=== PATIENT | female | born 1980 | race Caucasian/White ===

== ENCOUNTER 2019-08-16 13:06 | Emergency (ER) | payer OTHER ==
--- NOTE | 2019-08-16 13:21 | PDOC ---
Rapid Medical Evaluation Time Seen by Provider: 08/16/19 13:15 Medical Evaluation: 08/16/19 13:15 Pt presents for evaluation of vaginal bleeding, A1. Reports she has been bleeding since Saturday. She had a positive home test two days ago. LMP July 24 2019. Reports lower abdominal cramping. Exam: defer to provider. NAD Orders: Labs, TVUS Pt to proceed to the ER for further evaluation Discharge Disposition - Diagnosis Vaginal bleeding - Referrals - Patient Instructions - Post Discharge Activity
[2019-08-16 13:22] VITALS: BMI 22.6
--- NOTE | 2019-08-16 13:41 | PDOC ---
History of Present Illness - General Chief Complaint: ,Possible Stated Complaint: VAGINAL BLEEDING Time Seen by Provider: 08/16/19 13:15 - History of Present Illness Initial Comments: 08/16/19 13:40 HPI: 39 y/o F A1, presents to the ED with vaginal bleeding x 3 days. pt reports + home test as well as positive upreg at urgent care today. She endorses intermittent abdominal pain across her lower abdomen. No relieving or exacerbating factors, and pain is not positional in nature. LMP 07/24/2019. Pt reports changing pad x1 daily since bleeding began, and does not soak them through. Patient denies KIRBY, vision change, palpitations, cough, wheezing, orthopnea, PND, leg swelling/pain, nausea, vomiting, fevers, chills, chest pain, SOB, urinary complaints, hematuria, BPR, abdominal pain, diarrhea, constipation, lightheadedness, weakness, sensory changes. PMHx: as noted above ROS: as noted SHx: Denies Etoh, IVDA, tobacco use Allergies: NKDA ROS: GENERAL/CONSTITUTIONAL: No fever or chills. No weakness. HEAD, EYES, EARS, NOSE AND THROAT: No change in vision. No ear pain or discharge. No sore throat. CARDIOVASCULAR: No chest pain or shortness of breath RESPIRATORY: No cough, wheezing, or hemoptysis. GASTROINTESTINAL: No nausea, vomiting, diarrhea or constipation. GENITOURINARY: No dysuria, frequency, or change in urination. MUSCULOSKELETAL: No joint or muscle swelling or pain. No neck or back pain. SKIN: No rash NEUROLOGIC: No headache, vertigo, loss of consciousness, or change in strength /sensation. ENDOCRINE: No increased thirst. No abnormal weight change HEMATOLOGIC/LYMPHATIC: No anemia, easy bleeding, or history of blood clots. ALLERGIC/IMMUNOLOGIC: No hives or skin allergy. PE: GENERAL: Awake, alert, and fully oriented, in no acute distress HEAD: No signs of trauma, normocephalic, atraumatic EYES: PERRLA, EOMI, sclera anicteric, conjunctiva clear ENT: Auricles normal inspection, hearing grossly normal, nares patent, oropharynx clear without exudates. Moist mucosa NECK: Normal ROM, supple, no lymphadenopathy, JVD, or masses LUNGS: No distress, speaks full sentences, clear to auscultation bilaterally HEART: Regular rate and rhythm, normal S1 and S2, no murmurs, rubs or gallops, peripheral pulses normal and equal bilaterally. ABDOMEN: Soft, +RLQ tenderness, normoactive bowel sounds. No guarding, no rebound. No masses PELVIC: Nml appearing external genitalia, with absent lesions. Vaginal vault with blood(no pooling observed). Cervical os closed. Neg CMT on BM. Neg adenexal ttp, or mass palpated. EXTREMITIES : Normal inspection, Normal range of motion, no edema. No clubbing or cyanosis NEUROLOGICAL: Cranial nerves II through XII grossly intact. Normal speech, normal gait, no focal sensorimotor deficits SKIN: Warm, Dry, normal turgor, no rashes or lesions noted 08/16/19 14:36 08/16/19 17:59 Past History - Medical History Allergies/Adverse Reactions: Allergies Allergy/AdvReac Type Severity Reaction Status Date / Time No Known Allergies Allergy Verified 08/16/19 13:18 Home Medications: Ambulatory Orders NK [No Known Home Medication] 08/16/19 COPD: No - Psycho-Social/Smoking History Smoking History: Never smoked Have you smoked in the past 12 months: No - Substance Abuse Hx (Audit-C & DAST Scrn) How often the patient has a drink containing alcohol: Never Score: In Men: 4 or > Positive; In Women: 3 or > Positive: 0 Screen Result (Pos requires Nsg. Audit-10AR): Negative In the last yr the pt used illegal drug/Rx for NonMed reason: No Score: Yes response is considered Positive: 0 Screen Result (Positive result requires Nsg. DAST-10): Negative *Physical Exam - Vital Signs Last Vital Signs Temp Pulse Resp BP Pulse Ox 97.6 F 82 18 111/67 99 08/16/19 13:18 08/16/19 13:18 08/16/19 13:18 08/16/19 13:18 08/16/19 13:18 ED Treatment Course - LABORATORY CBC & Chemistry Diagram: 08/16/19 13:35 08/16/19 13:35 Medical Decision Making - Medical Decision Making 08/16/19 14:41 39 y/o F A1, presents to the ED with vaginal bleeding x 3 days. pt reports + home test ans well as positive upreg at urgent care today. ddx; ,ectopic, less likely pid workup: cbc, cmp, beta quant, tvus. 08/16/19 15:34 beta hc.4 TVUS no intrauterine gestation/gestatational sac ovaries unremarkable no gross adnxeal pathology no free intraperitoneal fluid. Pt has empty uterus + no adnexal mass + no free fluid beta -hcg <1500 and lower for what it should be at this gestational age pt will follow up with OB/ED for repeat beta-hcg in 48 hours pt O+ hence no Rhogham given 08/16/19 18:03 08/16/19 18:06 Discharge - Discharge Information Problems reviewed: Yes Clinical Impression/Diagnosis: Vaginal bleeding Condition: Stable Disposition: HOME - Admission No - Follow up/Referral - Patient Discharge Instructions Patient Printed Discharge Instructions: DI for Miscarriage Additional Instructions: You should return to the hospital if you continue to have persistent and heavy vaginal bleeding, persistent pelvic pain not relieved by your prescribed medications, dizziness, shortness of breath, new and persistent fevers, other foul smelling discolored vaginal discharge, or for any other concerns. We have given you follow up with one of our OB/GYNS COME TO THE ED ON 08/17 to fast track for a repeat beta - hcg, if your OB is not able to see you by then. - Post Discharge Activity
[2019-08-16 14:00] LABS: BASO % 0.7 % (0-2.0); EOS % 1.4 % (0-4.5); HEMATOCRIT 40.2 % (32.4-45.2); HEMOGLOBIN 13.2 GM/dL (10.7-15.3); LYMPH % 23.2 % (8-40); MCHC 32.9 g/dl (32.0-36.0); MEAN CELL VOLUME 94.4 fl (80-96); MEAN PLT VOLUME 10.5 fl (7.5-11.1); MONO % 6.9 % (3.8-10.2); NEUT % 67.8 % (42.8-82.8); PLATELET COUNT 177 K/MM3 (134-434); RBC 4.26 M/mm3 (3.60-5.2); RDW 12.7 % (11.6-15.6); WHITE BLOOD COUNT 7.2 K/mm3 (4.0-10.0)
[2019-08-16 14:33] LABS: PH,URINE 5.5 (5.0-8.0); URINE APPEARANCE Clear; URINE BILIRUBIN Negative (NEGATIVE); URINE COLOR Yellow; URINE GLUCOSE (UA) Negative (NEGATIVE); URINE KETONE Negative (NEGATIVE); URINE LEUK ESTERASE Negative (NEGATIVE); URINE NITRITE Negative (NEGATIVE); URINE PROTEIN Negative (NEGATIVE); URINE UROBILINOGEN 0.2 mg/dL (0.2-1.0)
[2019-08-16 14:39] LABS: ALBUMIN 4.4 g/dl (3.4-5.0); BILIRUBIN,TOTAL 0.5 mg/dL (0.2-1); BLOOD UREA NITROGEN 16.1 mg/dL (7-18); CALCIUM 9.4 mg/dL (8.5-10.1); CREATININE 0.9 mg/dL (0.55-1.3); POTASSIUM 4.4 mmol/L (3.5-5.1); TOT PROT 7.7 g/dl (6.4-8.2)
[2019-08-16 14:40] LABS: EPI CELLS 9.6 /uL (0-25.1); HYALINE CASTS 0.51 /uL (0-3.1); URINE RBC 19.2 /uL (0-23.9); URINE WBC 3.2 /uL (0-25.8)
[2019-08-16] MEDS ORDERED: IBUPROFEN 600 MG TABLET (FP) PO ONE ×2 (15:33→15:38)
[2019-08-16 15:46] VITALS: BP 117/77; PULSE 91; TEMP 98.7
--- NOTE | 2019-08-16 15:55 | PDOC ---
Documentation entered by Jackelin Dias SCRIBE, acting as scribe for Guy Nava MD. Guy Nava MD: This documentation has been prepared by the Arun weinberg Maria, SCRIBE, under my direction and personally reviewed by me in its entirety. I confirm that the documentation accurately reflects all work, treatment, procedures, and medical decision making performed by me. Attending Attestation - Resident Resident Name: ChristianWendy - ED Attending Attestation I have performed the following: I have examined & evaluated the patient, The case was reviewed & discussed with the resident, I agree w/resident's findings & plan, Exceptions are as noted - HPI HPI: 08/16/19 14:43 The patient is a 39 year old female, A1, with a significant past medical history of who presents to the emergency room with 3 days of vaginal bleeding. As per patient, she states she had a positive home test,LMP 07/24/2019. Patient also c/o intermittent lower abdominal cramping. She denies recent fevers, chills, headache or dizziness. She denies n/v/d. She denies dysuria, frequency, urgency or hematuria. She denies recent chest pain or shortness of breath. - Physicial Exam PE: 08/16/19 15:53 Exam: general: no acute distress abd: soft nontender, no cva tenderness, no rebound/guarding pelvic: sa documented by resident - Medical Decision Making 08/16/19 15:54 threatened ab vs early vs completed ab lbas noted for beta of 55, no IUP on US will hav ept return in 2 days to trend beta return precautions were discussed Discharge - Discharge Information Problems reviewed: Yes Clinical Impression/Diagnosis: Vaginal bleeding Condition: Stable Disposition: HOME - Follow up/Referral - Patient Discharge Instructions Patient Printed Discharge Instructions: DI for Miscarriage Additional Instructions: You should return to the hospital if you continue to have persistent and heavy vaginal bleeding, persistent pelvic pain not relieved by your prescribed medications, dizziness, shortness of breath, new and persistent fevers, other foul smelling discolored vaginal discharge, or for any other concerns. We have given you follow up with one of our OB/GYNS COME TO THE ED ON 08/17 to fast track for a repeat beta - hcg, if your OB is not able to see you by then. - Post Discharge Activity
== END 2019-08-16 16:02 | disposition home or self-care (01) ==
LOC: JER 13:06
DX: N93.9 Abnormal uterine and vaginal bleeding, unspecified (principal)
CPT/HCPCS: 36415; 76817-TC; 80053; 81003; 84702; 85025; 86850; 86900; 86901; 87086; 99284-25

== ENCOUNTER 2019-08-18 18:30 | Emergency (ER) | payer OTHER ==
--- NOTE | 2019-08-18 18:33 | PDOC ---
Rapid Medical Evaluation Time Seen by Provider: 08/18/19 18:31 Medical Evaluation: Allergies Allergy/AdvReac Type Severity Reaction Status Date / Time No Known Allergies Allergy Verified 08/16/19 13:18 08/18/19 18:31 CC: praveen repeat, no abd pain, bleeding has decreased Exam: vss, no abd tenderness Plan: [facility] [place] Discharge Disposition - Diagnosis Vaginal bleeding affecting early - Referrals - Patient Instructions - Post Discharge Activity
[2019-08-18 18:37] VITALS: BP 121/76; PULSE 110; TEMP 98.4; BMI 22.6
--- NOTE | 2019-08-18 18:45 | PDOC ---
History of Present Illness - General Chief Complaint: Revisit, Lab Variance Stated Complaint: BLOOD WORK Time Seen by Provider: 08/18/19 18:31 History Source: Patient - History of Present Illness Timing/Duration: reports: constant Past History - Medical History Allergies/Adverse Reactions: Allergies Allergy/AdvReac Type Severity Reaction Status Date / Time No Known Allergies Allergy Verified 08/18/19 18:32 Home Medications: Ambulatory Orders NK [No Known Home Medication] 08/16/19 COPD: No - Reproductive History (#): 3 Para: 1 - Psycho-Social/Smoking History Smoking History: Never smoked Have you smoked in the past 12 months: No - Substance Abuse Hx (Audit-C & DAST Scrn) How often the patient has a drink containing alcohol: Monthly or less Number of drinks the patient has on a typical day: 1 or 2 How often the patient has six or more drinks on one occasion: Never Score: In Men: 4 or > Positive; In Women: 3 or > Positive: 1 Screen Result (Pos requires Nsg. Audit-10AR): Negative In the last yr the pt used illegal drug/Rx for NonMed reason: No Score: Yes response is considered Positive: 0 Screen Result (Positive result requires Nsg. DAST-10): Negative Review of Systems - Review of Systems Constitutional: No: Chills, Fever ABD/GI: No: Nausea, Vomiting : No: Dysuria *Physical Exam - Vital Signs Last Vital Signs Temp Pulse Resp BP Pulse Ox 98.4 F 110 H 18 121/76 100 08/18/19 18:32 08/18/19 18:32 08/18/19 18:32 08/18/19 18:32 08/18/19 18:32 - Physical Exam General Appearance: Yes: Appropriately Dressed. No: Apparent Distress HEENT: positive: Normal Voice Neck: positive: Supple Respiratory/Chest: negative: Respiratory Distress Gastrointestinal/Abdominal: positive: Soft. negative: Tender Musculoskeletal: negative: CVA Tenderness Integumentary: positive: Dry, Warm Neurologic: positive: Fully Oriented, Alert, Normal Mood/Affect Medical Decision Making - Medical Decision Making 08/18/19 18:43 39 yo F, (s/p 1 elective AB), here for rpt beta. Was seen here 2 days ago for vag bleed in early preg. Beta 55 w/ of unknown location on US. RH +. Neg ucx. Has vaginal bleeding "like a bad period" now, no clots. No abd pain now and no dysuria, n/v/f/c see exam Abd pain in early Since improved No e/o preg on US w/ beta of 55 08/15 -rpt beta and ? US today 08/18/19 19:20 Rpt beta 162. US pending. Signed out to MOISES Saravia at this point Discharge - Discharge Information Problems reviewed: Yes Clinical Impression/Diagnosis: Vaginal bleeding affecting early Condition: Stable Disposition: HOME - Follow up/Referral Referrals: Griselda Del Valle MD [Staff Physician] - - Patient Discharge Instructions Additional Instructions: Return to the emergency room for further issues and without fail follow-up with your FLIGHT CONTROL MANAGER in 1 to 2 days for further evaluation and treatment options. - Post Discharge Activity
--- NOTE | 2019-08-18 19:51 | PDOC ---
History of Present Illness - General Chief Complaint: Revisit, Lab Variance Stated Complaint: BLOOD WORK Time Seen by Provider: 08/18/19 18:31 - History of Present Illness Initial Comments: 08/18/19 19:49 39 y/o F about 4 weeks gravid with spotting here for repeat bHCG. No cramping today. Past History - Medical History Allergies/Adverse Reactions: Allergies Allergy/AdvReac Type Severity Reaction Status Date / Time No Known Allergies Allergy Verified 08/18/19 18:32 Home Medications: Ambulatory Orders NK [No Known Home Medication] 08/16/19 COPD: No - Reproductive History (#): 3 Para: 1 - Psycho-Social/Smoking History Smoking History: Never smoked Have you smoked in the past 12 months: No - Substance Abuse Hx (Audit-C & DAST Scrn) How often the patient has a drink containing alcohol: Monthly or less Number of drinks the patient has on a typical day: 1 or 2 How often the patient has six or more drinks on one occasion: Never Score: In Men: 4 or > Positive; In Women: 3 or > Positive: 1 Screen Result (Pos requires Nsg. Audit-10AR): Negative In the last yr the pt used illegal drug/Rx for NonMed reason: No Score: Yes response is considered Positive: 0 Screen Result (Positive result requires Nsg. DAST-10): Negative Review of Systems - Review of Systems Constitutional: No: Fever : Yes: See HPI *Physical Exam - Vital Signs Last Vital Signs Temp Pulse Resp BP Pulse Ox 98.4 F 110 H 18 121/76 100 08/18/19 18:32 08/18/19 18:32 08/18/19 18:32 08/18/19 18:32 08/18/19 18:32 - Physical Exam General Appearance: Yes: Appropriately Dressed. No: Apparent Distress HEENT: positive: Symmetrical Neck: positive: Supple Respiratory/Chest: negative: Respiratory Distress Musculoskeletal: positive: Normal Inspection Extremity: positive: Normal Inspection Integumentary: positive: Normal Color Neurologic: positive: blue line trimmer II-XII NML intact, Fully Oriented, Alert, Normal Mood/Affect ED Treatment Course - ADDITIONAL ORDERS Additional order review: Laboratory Results 08/18/19 18:40 Beta HCG, Quant 162.1 Medical Decision Making - Medical Decision Making 08/18/19 21:07 No ectopic or intrauterine visualized possibly early beta is rising. Repeat beta and ultrasound discussed with patient in the next 48 hours. Follow-up with FINANCIAL AID OFFICER stressed. I have reviewed the pathophysiology with the patient. They are in agreement with the treatment plan all questions were answered to their satisfaction. Understanding for follow-up without fail was also conveyed to the patient. Again they are in agreement. Discharge - Discharge Information Problems reviewed: Yes Clinical Impression/Diagnosis: Vaginal bleeding affecting early Condition: Stable Disposition: HOME - Admission No - Follow up/Referral Referrals: Griselda Del Valle MD [Staff Physician] - - Patient Discharge Instructions Additional Instructions: Return to the emergency room for further issues and without fail follow-up with your FINANCIAL AID OFFICER in 1 to 2 days for further evaluation and treatment options. - Post Discharge Activity
== END 2019-08-18 21:20 | disposition home or self-care (01) ==
LOC: JER 18:30
DX: O20.8 Other hemorrhage in early pregnancy (principal)
CPT/HCPCS: 36415; 76817-TC; 84702; 99283-25